=== PATIENT | female | born 1950 | race Caucasian/White ===

== ENCOUNTER → 2020-09-05 13:48 | Outpatient (BNVA) | payer MEDICARE, SELFPAY | PROVIDERS: Family Provider Family Medicine; Referring Provider Family Medicine; Visit Provider Orthopaedic Surgery | DX: M25.562 Pain in left knee (principal); M17.12 Unilateral primary osteoarthritis, left knee; Q74.1 Congenital malformation of knee | CPT/HCPCS: 73560; 73565 ==

== ENCOUNTER → 2021-03-06 10:39 | Outpatient (BNVA) | payer MEDICARE, SELFPAY | PROVIDERS: Family Provider Family Medicine; PCP Family Medicine; Referring Provider Family Medicine; Visit Provider Orthopaedic Surgery | DX: M54.9 Dorsalgia, unspecified (principal) | CPT/HCPCS: 72110 ==

== ENCOUNTER → 2021-04-11 12:23 | Outpatient (BNVA) | payer MEDICARE, SELFPAY | PROVIDERS: Family Provider Family Medicine; PCP Family Medicine; Visit Provider Orthopaedic Surgery | DX: Z01.818 Encounter for other preprocedural examination (principal); Z20.822 Contact with and (suspected) exposure to COVID-19 | CPT/HCPCS: 87635 ==

== ENCOUNTER 2021-04-13 06:00 | Outpatient (CLI) | payer MEDICARE, MEDICAID, SELFPAY ==
[2021-04-13 11:28] VITALS: BMI 32.8
--- NOTE | 2021-04-13 11:56 | ANES.PREANE2 ---
Pre-Anesthetic Assessment Pre-Anesthetic Assessment: Height/Weight: Height 1.52 m Weight 76.204 kg Preop Diagnosis: failed back surgery; lumbar stenosis Proposed Procedure: Operation Date: 04/16/21 07:00 Proposed Procedures p PLIF [id number](Not Applicable) - Roni Gordon, DO Familial anesthetic complications: None Social: Social History: No alcohol and No tobacco Exam: Pre-Anes Outpt Exam: alert, oriented x 3, clear to auscultation bilaterally and regular rate & rhythm Airway: Cervical ROM: WNL MP: 2 Dentition: Other (missing) CV/HEM: CV/HEM: HTN GI: GI: GERD Metabolic: Metabolic: Hyperlipidemia and Thyroid Musc/skel: Musc/skel: Lower Back Pain and OA/DJD Anesthetic Plan: ASA status: 2 Anesthesia: General Risk of > 500 ml blood loss (7ml/kg in children): No PFSH Anesthesia PFSH: Social History Smoking and tobacco status: never smoked Alcohol intake: current Alcohol intake frequency: holidays/special occasions only Data Anesthesia Cardiac Studies: No Data to Display
[2021-04-13 13:23] LABS: Alanine Aminotransferase 7 U/L (0-33); Albumin Level 4.1 g/dL (3.5-5.2); Alkaline Phosphatase 76 IU/L (35-105); Anion Gap 11.8 (5-19); Aspartate Amino Transferase 16 U/L (0-32); Blood Urea Nitrogen 16 mg/dL (8-23); Calcium 8.8 mg/dL (8.5-10.5); Carbon Dioxide 27 mmol/L (22-29); Chloride 101 mmol/L (98-107); Glomerular Filtration Rate 99.1 mL/min (90-130); Glucose 102 mg/dL (65-115); Osmolality Calculated 283 mOsm/kg (285-295); Potassium 3.8 mmol/L (3.5-5.1); Sodium 136 mmol/L (136-145); Total Bilirubin 0.4 mg/dL (0.15-1.2); Total Protein 7.1 g/dL (6.6-8.7)
== END 2021-04-13 06:01 | disposition home or self-care (01) ==
LOC: LAB 03-21 09:10
PROVIDERS: Absent Provider Anesthesiology; PCP Family Medicine; Visit Provider Orthopaedic Surgery
DX: Z01.89 Encounter for other specified special examinations (principal)
CPT/HCPCS: 80053

== ENCOUNTER → 2021-08-17 10:35 | Outpatient (BNVA) | payer MEDICARE, SELFPAY | PROVIDERS: PCP Family Medicine; Visit Provider Orthopaedic Surgery | DX: M54.9 Dorsalgia, unspecified (principal); Z20.822 Contact with and (suspected) exposure to COVID-19 | CPT/HCPCS: 87635 ==

== ENCOUNTER 2021-08-22 13:43 | Inpatient (IN) | payer MEDICARE, MEDICAID, SELFPAY ==
[2021-08-17 11:37] VITALS: BMI 34.2
--- NOTE | 2021-08-17 11:59 | P.ANESASSM_ITS ---
Pre-Anesthetic Assessment Pre-Anesthetic Assessment: Height/Weight: Height 1.52 m Weight 79.379 kg Preop Diagnosis: failed back surgery; lumbar stenosis Proposed Procedure: Operation Date: 08/22/21 07:00 Proposed Procedures p Posterior Lumbar Interbody Fusion [id number] [id number] [id number] 93174 [id number] 72125 M96.1(Not Applicable) - Roni Gordon, DO Familial anesthetic complications: none Social: Social History: No alcohol and No tobacco Exam: Pre-Anes Outpt Exam: alert, oriented x 3, clear to auscultation bilaterally and regular rate & rhythm Airway: Cervical ROM: WNL MP: 2 Dentition: Other (missing teeth) CV/HEM: CV/HEM: HTN GI: GI: GERD Metabolic: Metabolic: Hyperlipidemia and Thyroid Musc/skel: Musc/skel: Lower Back Pain and OA/DJD Anesthetic Plan: ASA status: 2 Anesthesia: General Risk of > 500 ml bl ood loss (7ml/kg in children): No PFSH Anesthesia PFSH: Social History Smoking and tobacco status: never smoked Alcohol intake: current Alcohol intake frequency: holidays/special occasions only Data Anesthesia Cardiac Studies: No Data to Display
[2021-08-17 12:27] LABS: Basophils % 0.2 %; Eosinophils # 0.1 10^3/uL (0.0-0.8); Eosinophils % 0.6 %; Hematocrit 45.6 % (37.0-47.0); Hemoglobin 15.2 g/dL (11.5-15.3); Lymphocytes # 3.5 10^3/uL (0.8-4.8); Lymphocytes % 43.8 %; Mean Corpuscular HGB Conc 33.3 g/dL (30.0-36.0); Mean Corpuscular Hemoglobin 29.3 pg (28.0-34.0); Mean Corpuscular Volume 87.9 fl (81-99); Mean Platelet Volume 9.4 fL (7.4-10.4); Monocytes # 0.5 10^3/uL (0.2-0.9); Monocytes % 5.8 %; Neutrophils # 3.99 10^3/uL (1.8-7.7); Neutrophils % 49.4 %; Nucleated Red Blood Cells % 0 %; Platelet Count 381 10^3/cmm (130-400); Red Blood Count 5.19 10^6/uL (4.1-5.3); Red Cell Distribution Width 14.4 % (12.1-15.1); White Blood Count 8.1 10^3/uL (4.0-10.0)
[2021-08-22] VITALS (24 sets, daily range): BP systolic 94–143; BP diastolic 64–088; PULSE 75–93; RESP 14–24; TEMP 36.5–36.9; O2SAT 92–100
--- NOTE | 2021-08-22 | SCC_ITS ---
Procedure Done: 1. T10 to pelvis fusion 2. T10 - S1 instrumentation 3. Lumbo pelvic fixation 4. Bone marrow aspirate from separate incision right iliac crest 5. Computer navigation / stereotactic of the spine 6. use of allogrtaft 7. use of autograph 8. Removal of screws fro L2 - S1 6 seconds of fluoroscopic guidance, for a cumulative dose of 73.5 mGy, was provided to Dr. Gordon by the radiology department. C-arm images of the lumbar spine were saved for the patient's permanent record. DEMARCUS
--- NOTE | 2021-08-22 | XR_ITS ---
WS: [id number] Lumbar spine, C-arm fluoroscopy, 08/22/2021 Clinical Data: plif Comparison: Lumbar spine, 03/06/2021. Findings: Dr. Gordon performed a posterior thoracolumbar fusion with bilateral pedicle screws and connecting flor s. Oblique screws are also extending from the sacrum into the pelvis. XR/XR lumbar spine 2-3V* [id number] Impression: Extensive posterior thoracolumbar fusion.
[2021-08-22] MEDS: sodium chloride 0.9% 1,000 ML 30 ML IV (09:52)
--- NOTE | 2021-08-22 10:36 | P.ANESUD_ITS ---
Pre-Anesthetic Update Pre-Anesthetic Assessment: Date of Surgery/Procedure: 08/22/21 Preop Maki gnosis: failed back surgery; lumbar stenosis Proposed Procedure: Operation Date: 08/22/21 10:25 Proposed Procedures p Posterior Lumbar Interbody Fusion [id number] 31015 10467 [id number] [id number] M96.1(Not Applicable) - Roni Gordon, DO Any changes to Pre-Anesthetic Assessment?: No Last Intake: Intake Last Liquid Date 08/21/21 Last Liquid Time 17:00 Last Solid Date 08/21/21 Last Solid Time 17:00 Vitals: Temperature 97.8 F 08/22/21 09:18 Temperature Source Temporal Artery S can 08/22/21 09:18 Pulse Rate 93 08/22/21 09:18 Pulse Rhythm 08/22/21 09:18 Pulse Strength 3+ Normal 08/22/21 09:18 Respiratory Rate 18 08/22/21 09:18 Blood Pressure 143/76 08/22/21 09:18 Blood Pressure Rachelle n 98 08/22/21 09:18 Pulse Oximetry 96 08/22/21 09:18 Oxygen Delivery Me thod 08/22/21 09:18 Exam: Pre-Anes Outpt Exam: alert, oriented x 3, clear to auscultation bilaterally and regular rate & rhythm Other Pertinent Information: Other Pertinent Information: GETA with [employer] Cardiac Studies: No Data to Display
--- NOTE | 2021-08-22 10:40 | P.HPUD_ITS ---
Surgery/Procedure H&P Update DATE OF PROCEDURE: August 22, 2021 DATE H&P PERFORMED: 08/22/21 PREOP DIAGNOSIS: failed back surgery; lumbar stenosis PLANNED PROCEDURE: Operation Date: 08/22/21 10:25 Proposed Procedures p Posterior Lumbar Interbody Fusion [id number] 11679 50862 95926 38612 43711 20394 M96.1(Not Applicable) - Roni Gordon DO
--- NOTE | 2021-08-22 10:40 | W.PM.OPSUD ---
Surgery/Procedure H&P Update DATE OF PROCEDURE: August 22, 2021 DATE H&P PERFORMED: 08/22/21 PREOP DIAGNOSIS: failed back surgery; lumbar stenosis PLANNED PROCEDURE: Operation Date: 08/22/21 10:25 Proposed Procedures p Posterior Lumbar Interbody Fusion [id number] 48391 11527 64209 21940 [id number] [id number] M96.1(Not Applicable) - Roni Gordon DO
--- NOTE | 2021-08-22 10:41 | P.HP_ITS ---
Providers/Chief Complaint Primary Care Provider: Kraig Jorge MD Chief Complaint: plif History of Present Illness Ana Villagran is a 71 year old female Chief Complaint: low back pain that has continued sine back surgery in 2019 Onset: 07/02/2019 Duration: years worse sine surgery Characteristics: ache,burning,sharp, stabbing constant and intermittent Severity: 06/12 Location: low back above and below incision. Radiating symptoms:left lateral knee numbness and swelling, complains of pain that radiates up to her neck. Aggravating factors: walking long distances increases weakness and pain, standing, Alleviating factors: laying flat Neuro deficits: denies incontinence of bowel/bladder, saddle anesthesia. Prior tx: Fusion 07/02/2019 [facility] home Review of Systems Narrative: General ROS: negative for weight changes, fever ENT ROS: negative for nasal congestion, drainage or bleeding, sore throat, dysphagia or ear pain Eyes: PERRL Hematological and Lymphatic ROS: negative for swollen glands or abnormal bleeding Endocrine ROS: negative for polyuria/polydpsia or new changes in weight Respiratory ROS: negative for cough, shortness of breath, or wheezing Cardiovascular ROS: negative for chest pain or dyspnea on exertion Gastrointestinal ROS: negative for reflux, abdominal pain, change in bowel habits, or black or bloody stools Musculoskeletal ROS: negative for back pain, neck pain, or joint pain or swelling except for current problem Neurological ROS: negative for TIA or stoke symptoms Skin: no rashes Medications/Allergies Home Medications Medication Instructions Recorded Confirmed Last Taken Type dicyclomine 10 mg capsule 10 mg PO DAILY cap 09/05/20 08/22/21 08/21/21 History estradiol 1 mg tablet 1.5 mg PO DAILY tab 09/05/20 08/22/21 08/21/21 History fluticasone furoate 50 2 inh INHALATION DAILY each 09/05/20 08/22/21 08/21/21 History mcg/actuation blister powder for inhalation levothyroxine 200 mcg capsule 150 mcg PO DAILY 09/05/20 08/22/21 08/21/21 History medroxyprogesterone 5 mg tablet 5 mg PO DAILY 09/05/20 08/22/21 08/21/21 History omeprazole 20 mg capsule,delayed 20 mg PO DAILY 09/05/20 08/22/21 08/21/21 History release Bone growth stimulator [id number] #1 ea 08/06/21 Unknown Rx amlodipine 10 mg PO DAILY 08/17/21 08/22/21 08/22/21 History atorvastatin 20 mg PO DAILY 08/17/21 08/22/21 08/21/21 History duloxetine 60 mg PO DAILY 08/17/21 08/22/21 08/21/21 History hydrocodone-acetaminophen 10 - 325 tab PO Q6H PRN 08/17/21 08/22/21 08/22/21 History Allergies Allergy/AdvReac Type Severity Reaction Status Date / Time niacin Allergy hives Verified 08/22/21 09:12 Sulfa (Sulfonamide Allergy ALGY-Rash Verified 08/22/21 09:12 Antibiotics) sulfamethoxazole Allergy hives Verified 08/22/21 09:12 [From Bactrim] trimethoprim [From Bactrim] Allergy hives Verified 08/22/21 09:12 PFSH Acute PFSH: Social History Smoking and tobacco status: never smoked Alcohol intake: current Alcohol intake frequency: holidays/special occasions only Vitals/I&O/Wt Last Vital Signs Temp 97.8 F 08/22/21 09:18 Pulse 93 08/22/21 09:18 Resp 18 08/22/21 09:18 BP 143/76 08/22/21 09:18 Pulse Ox 96 08/22/21 09:18 Physical Exam Narrative: EXAM NARRATIVE: CONSTITUTIONAL: The patient is a normal appearing [ ] in no apparent distress. GENERAL: Patient in no acute distress. CARDIAC: Regular rate and rhythm. CHEST: Normal inspiratory effort, normal respiratory rate. ABDOMEN: Soft and nontender. SKIN: Clear, warm and intact. NEURO?PSYCH: The patient is alert and oriented to person, place and time. Sensorv /SILT Motor StrengthShoulder abduction C5 5/5Wrist extension C6 5/5Elbow extension C7 5/5Hand Composite Engineer C8 5/5Finger abduction T15/5 Radial/ Ulnar/ Median n intact LowerSensory (SILT)Motor StrengthHin flexion L2/3Ant/inner thigh 5/5Hip adduction L2/3 5/5Knee extension L4 Lat thigh, 5/5Toe dorsiflexion L5 5/5Ankle dorsiflexion L5/ V79Aobyjuq flexion S1 5/5 DTRBleeps 2+Triceps 2+Brachioradialis 2+Patellar 2+Achilles 2+ MUSCULOSKELETAL: [] UPPEREXTREMITIES: The patient had full active ROM in fingers, wrist, elbow, and shoulder. The patient demonstrated ability to fully flex/extend/abduc t/adduct fingers, make ok sign, cross 2nd/3rd digits, extend 1st digit fully.. Radial pulse 2+, CR<2 seconds. LOWER EXTREMITIES: Pt has full, active ROM of toes, ankle, knee, and hip. Dorsalis pedis/posterior tibialis pulses 2+, CR<2 seconds. SPINE: Skin warm, dry, intact. Data : 08/17/21 11:56 A&P Assessment and plan (1) Failed back syndrome: Status: Acute (2) Kyphosis: T10 - Pelvis fusion Status: Acute Attestations Medical Necessity Statement*: failed conservative therapy Coding Level of Care Code Acute Explosive Ordnance Manager for [facility] Diagnoses Failed back syndrome M96.1 Kyphosis M40.209
[2021-08-22] MEDS: heparin, porcine 1,000 unit/mL INJ 10 mL 10000 UNIT IRRIGATION (12:41)
[2021-08-22] MEDS: vancomycin 1,000 MG SDV 1000 MG XX (12:43)
--- NOTE | 2021-08-22 15:01 | P.OP_ITS ---
Operative Report Date of procedure: August 22, 2021 Pre-op Diagnosis: failed back surgery; lumbar stenosis with neurogenic claudication; kyphosis Post-op diagnosis: same Procedure Done: 1. T10 to pelvis fusion 2. T10 - S1 instrumentation 3. Lumbo pelvic fixation 4. Bone marrow aspirate from separate incision right iliac crest 5. Computer navigation / stereotactic of the spine 6. use of allogrtaft 7. use of autograph 8. Removal of screws fro L2 - S1 Surgeon: Roni Gordon Food Server: Jabier Marin Food Server: The neurosurgical physician assistant, Jabier Marin, PAC was needed for his expertise under the microscope. He was important and necessary throughout the procedure to complete in a safe and timely manner. He assisted with patient positioning prepping and draping tissue retraction suctioning of the operative field protection of the dural sac and tissue closure Anesthesia: General Estimated blood loss (mL): 300 Condition: stable Disposition: PACU Procedure: 1. T10 to pelvis fusion 2. T10 - S1 instrumentation 3. Lumbo pelvic fixation 4. Bone marrow aspirate from separate incision right iliac crest 5. Computer navigation / stereotactic of the spine 6. use of allogrtaft 7. use of autograph 8. Removal of screws fro L2 - S1 Patient was brought to the operative suite and after undergoing anesthesia was placed in the prone position. All areas impingement were well-padded. Patient was prepped and draped in the normal sterile fashion. Skin incision made over the previous skin incision. Subperiosteal dissection was made from T10 out to the transverse processes down to the sacral ala. Previous hardware from L2-S1 was identified. The right sided screws were identified first. The caps were removed followed by the flor followed by removal of the screws at L2 L3-L4-L5 and S1 on the right. The ball feeler was used to ensure that the pedicles felt like they were in good repair. The screws were replaced with the Arslan screws in order to facilitate connecting to the flor. This process was repeated on the left side. There was no L3 screw however it was just the L2 L4-L5 and S1 screws. Screws were replaced into L2 L5 and S1. L3 was skipped because it appeared to be outside of the pedicle on the imaging studies. Next attention was brought to getting the bone marrow aspirate out of the right iliac crest. The [employer] cell aspiration kit was used. The sharp awl was inserted the bone marrow was aspirated the blunt was placed into the tube and driven into the iliac crest. And then the needle aspirator was inserted. The needle aspirated the bone marrow as it was brought out millimeter at a time. And 20 cc of bone marrow aspirate were taken. This was mixed with the aloe graft and allograft. Next attention was brought to the computer navigation. 2 pins were placed into the iliac crest and the fiducial for the computer navigation was attached. This information was linked to the computer. And then the C arm was brought in and spun around the patient. The information from the serum was linked into the fiducial and the computer navigation. In order to facilitate placing pedicle screws and the iliac screws. Attention was first brought to placing the iliac screws. The sacral ala was identified and then the gearshift was passed through the sacral ala through the SI joint into the iliac wing on both the right and left side. This was done using the computer navigation. The ball feeler was then used to ensure that the bone was not breached and the tap was used followed by placing an 8.5 80 mm Arslan pedicle screw. This was done on both sides. Next a new fiducial was placed at the spinous process of L2. And the computer navigation was linked in with the C arm spin again. Screws were placed at L1 T12 T11 and T10 bilaterally. This was done by using the gearshift probe linked to the computer. Followed by the ball of probe to feel the pedicles. And then the screw was placed using the computer navigation. The screws ranged from 45 to 40 mm screws. Once all the screws were placed attention was then to the next place to placing the flor. The flor was placed on the right side first placing it through the screws from T10 all the way to the iliac pelvis screw. The caps were all locked down and torqued down. This process was then repeated on the left side. Rods were torqued down on the left side. And imaging studies with the C-arm were taken sure that the screws and rods were in the appropriate position. The lamina and transverse processes were then decorticated from T10 down into the L3 range. And bone graft was packed into the lamina and gutters to connect the fusion masses. Prior to this the wound was irrigated and then after the bone graft placed vancomycin powder was placed a deep drain was placed and wound was closed in layered fashion with 0 Vicryl 2-0 Vicryl Monocryl suture and Steri-Strips. Sterile dressings were applied patient was transferred to the PACU in stable condition.
--- NOTE | 2021-08-22 15:29 | P.PCN_ITS ---
Documented by User: Eleazar Claudio CRNA 08/22/21 15:29 PACU note PACU note: VSS, Good respiratory effort, report to ENGINEERING RECRUITER Post-Anesthesia Exam: awake
--- NOTE | 2021-08-22 15:29 | PM.PACU ---
Documented by User: Eleazar Claudio CRNA 08/22/21 15:29 PACU note PACU note: VSS, Good respiratory effort, report to SALESPERSON [employer] Post-Anesthesia Exam: awake
[2021-08-22] MEDS: fentaNYL 50 mcg/mL INJ 2mL IVP (15:31)
[2021-08-22] MEDS: HYDROmorphone 1 mg/mL INJ 1 mL IVP (15:42)
[2021-08-22] MEDS: HYDROmorphone 1 mg/mL INJ 1 mL 0.5 MG IVP ×2 (15:55→16:13)
--- NOTE | 2021-08-22 16:16 | ANE.PACU2 ---
Inpatient post-anesthesia follow up: Airway intact: Yes Vital signs: Temperature 98.5 F Pulse Rate 83 Respiratory Rate 18 Blood Pressure 94/71 Pulse Oximetry 97 Oxygen Delivery Me thod Simple Mask Oxygen Flow Rate 6 Fraction of Inspir ed Oxygen Hydration adequate: Yes Nausea and vomiting: No Pain level: 5 Additional Comments: Sedated
--- NOTE | 2021-08-22 16:58 | SUR.PHASEI ---
1518 PT TO PACU PT CARE ASSUMED BY ARIANNA STEWART , PT RESTLESS AND WRITHING IN BED ART LINE TO LT WRIST IV TO RT HAND PATENT 1535 PT CARE ASSUMED BY Kavin SANDERS CRNA SEE MEDS GIVEN BY TOO AND CHARTED BY RN . PT CONTINUES TO BE WILD AND RESTLESS IN BED MOANING AND WRITHING IN BED GOOD RESP EFFORT , PT MOVES ALL EXT TO COMMAND AND STRONGLY 1548 PT CARE ASSUMED BY Otilio MARTINEZ PT AWAKE ALERT WRITHING IN PAIN , PT STATES AT 10 AND UNCHANGED SEE PREVIOUS PAIN MEDS GIVEN DR ROGERS AT BEDSIDE SEE MEDS GIVEN 1613 PT LESS RESTLESS BUT TEAR FULL AND RATES PAIN AT 10 SEE PAIN MED GIVEN TO MAKE A TOTAL OF 2 MG DILAUDID IN PACU, DR ROGERS AT BEDSIDE AND REMOVED ART LINE TO LEFT WRIST INTACT AND PRESSURE HELD WITH PRESSURE DRESSING APPLIED BY RN. PT DRESSING AND ABD BINDER D/I
--- NOTE | 2021-08-22 17:03 | SUR.PHASEI ---
164 REPOR T CALLED TO FLOOR PT UPDATED AND WILL WALK UP TO FLOOR WITH PT AND RNS X 2 PT ON BED, VSS PT ALERT AND TALKATIVE WITH STAFF AND . 1650 PT IN ROOM , PT MOVED UP IN BED WITH THE ASSIST OF 2 RNS, HANDOFF AT BEDSIDE TO SELIN STEWART.
[2021-08-22] MEDS: HYDROcodone-acetaminophen 5-325 mg Tablet PO (17:34)
[2021-08-22] MEDS: docusate sodium 100 mg Capsule PO (17:34)
[2021-08-22] MEDS: morphine 4 mg/mL SDV 1 mL 2 MG IVP (19:50)
[2021-08-22] MEDS: lactated ringers 1,000 ML 90 ML IV (20:28)
[2021-08-23] VITALS: BP 123/72; PULSE 95; RESP 17; TEMP 36.6; O2SAT 98
[2021-08-23] MEDS: HYDROcodone-acetaminophen 10-325 mg Tablet PO (00:07)
[2021-08-23] MEDS: ketorolac 30 mg/mL INJ IVP (02:32)
[2021-08-23] MEDS: ondansetron 2 mg/ML SDV 2 mL 4 MG IVP ×2 (02:32→06:32)
[2021-08-23 04:00] VITALS: BP 137/82; PULSE 90; RESP 16; TEMP 36.7; O2SAT 97
[2021-08-23] MEDS: enoxaparin 40 mg/0.4 mL Syringe SUBCUT (06:15)
--- NOTE | 2021-08-23 06:27 | P.PN_ITS ---
Subjective Subjective: Interval history: POD 1 Complains of some mild back discomfort. Legs feel better. Denies any chest pain, shortness of breath. She does have some nausea. Mild headache. Vitals/I&O/Wt Last Vital Signs Temp 98.0 F 08/23/21 04:00 Pulse 90 08/23/21 04:00 Resp 16 08/23/21 04:00 BP 137/82 08/23/21 04:00 Pulse Ox 97 08/23/21 04:00 08/22/21 08/22/21 08/23/21 14:59 22:59 06:59 Intake Total 60 / 60 760 / 820 60 / 880 Output Total 700 / 700 900 / 1600 Balance 60 / 60 60 / 120 -840 / -720 Physical Exam Narrative: EXAM NARRATIVE: She is alert oriented x3 she has good general appearance normal mood normal affect. Incision is clean and dry. She had 150 mL out of her Hemovac over the last 12 hours. She wiggles all digits with 5/5 strength. Good sensation light touch in all lower extremities. Dorsalis pedis and posterior pulses are palpable. SCDs present on both lower extremities. Data : 08/17/21 11:56 A&P Assessment and plan (1) Hx of spinal fusion: Encouraged her to begin mobilizing today with physical therapy. We will discontinue her Tena catheter. We will discontinue her Hemovac drain later today. Discussed with the nurse to work on laxative of choice to help with a bowel movement. Should continue with incentive spirometry for pulmonary toilet. Hopes of discharge home tomorrow. Status: Acute Attestations Medical Necessity Statement*: Revision Thoracolumbar fusion with N/V this AM Coding Level of Care Code Acute Structural Drafter for [facility] Diagnoses Hx of spinal fusion Z98.1
[2021-08-23 06:32] VITALS: RESP 18
[2021-08-23] MEDS: morphine 4 mg/mL SDV 1 mL 2 MG IVP ×2 (06:32→10:43)
[2021-08-23 08:00] VITALS: BP 113/66; PULSE 88; RESP 18; TEMP 36.9; O2SAT 97
[2021-08-23] MEDS: docusate sodium 100 mg Capsule PO (08:49)
[2021-08-23] MEDS: pantoprazole DR 40 mg Tablet PO (08:49)
[2021-08-23] MEDS: dicyclomine 10 mg Capsule PO (08:49)
[2021-08-23] MEDS: duloxetine 60 mg Capsule PO (08:49)
[2021-08-23] MEDS: levothyroxine 150 mcg Tablet PO (08:49)
[2021-08-23] MEDS: atorvastatin 40 mg Tablet 20 MG PO (08:49)
[2021-08-23] MEDS: estradiol 1 mg Tablet 1.5 MG PO (08:53)
[2021-08-23] MEDS: lactated ringers 1,000 ML 90 ML IV (08:54)
[2021-08-23] MEDS: amlodipine 10 mg Tablet PO (08:55)
--- NOTE | 2021-08-23 09:36 | PC.NURSE ---
Hemovac drain removed per orders with no apparent complications. Will continue to monitor.
[2021-08-23] MEDS: medroxyprogesterone 2.5 mg Tablet 5 MG PO (10:13)
[2021-08-23 10:43] VITALS: RESP 14
[2021-08-23 11:46] VITALS: BP 124/74; PULSE 93; RESP 18; TEMP 37.2; O2SAT 97
--- NOTE | 2021-08-28 07:53 | P.DS_ITS ---
Discharge Providers Date of Admission: 08/22/21 13:43 Date of Discharge: August 23, 2021 Attending Provider at Admission: Roni Gordon DO Attending Provider at Discharge: Roni Gordon DO Primary Care Provider: Kraig Jorge MD Diagnoses at Discharge Discharge Diagnosis (1) Hx of spinal fusion: Status: Acute Reason for Visit Reason for Visit: plif Hospital Course Hospital Course Patient was admitted on 08/22/2021. She had a T10 to pelvis revision spinal fusion. Her hospital course was uneventful she went home on 08/23/2021. Discharge Data Data Completed and Pending: Completed Studies During Hospitalization Category Date Time Status XR lumbar spine 2 -3V* [id number] Routine Exams 08/22/21 Completed Vitals: Last Vital Signs Temp 98.9 F 08/23/21 11:46 Pulse 93 08/23/21 11:46 Resp 18 08/23/21 11:46 BP 124/74 08/23/21 11:46 Pulse Ox 97 08/23/21 11:46 Discharge Plan Discharge Patient Disposition: Home Condition: Stable Prescriptions: New hydrocodone-acetaminophen 5-325 mg tablet 1 - 2 tab PO .Q4-6H Qty: 40 RF: 0 Continued dicyclomine 10 mg capsule 10 mg PO DAILY RF: 0 estradiol 1 mg tablet 1.5 mg PO DAILY RF: 0 fluticasone furoate 50 mcg/actuation blister with device 2 inh INHALATION DAILY RF: 0 levothyroxine 200 mcg capsule 150 mcg PO DAILY RF: 0 medroxyprogesterone 5 mg tablet 5 mg PO DAILY RF: 0 omeprazole 20 mg capsule,delayed release(DR/EC) 20 mg PO DAILY RF: 0 (DME) Bone growth stimulator E0748 See Rx Instructions .Route .MEDSUPPLY Qty: 1 RF: 0 atorvastatin 20 mg Tablet 20 mg PO DAILY RF: 0 hydrocodone-acetaminophen 10-325 mg Tablet 10 - 325 tab PO Q6H PRN (Reason: Pain) RF: 0 amlodipine 10 mg Tablet 10 mg PO DAILY RF: 0 duloxetine 60 mg Capsule,Delayed Release(Dr/Ec) 60 mg PO DAILY RF: 0 Discharge Orders: Discharge Order (Routine); Ordered 08/23/21 Ordered By: Roni Gordon Referrals: Roni Gordno DO [Physician] - 08/30/21 9:15 am Discharge Diet: Advance as tolerated Discharge Activity: Limit activity as instructed Patient Instructions: Hydrocodone/Acetaminophen (By mouth), Lumbar Spinal Fusion (GEN), Opioid Safety Activity Restrictions/Additional Instructions: Thank you for [facility] for your care! The following is a list of instructions, from your provider, to follow upon your discharge to ensure you have the optimal recovery from your recent injury orsurgery. Follow-up care is a duran part of your treatment and safety. Be sure to make and go to all appointments, and call your doctor if you are having problems. If you do not already have a follow-up appointment made, call Dr. Gordon office in the next 1-3 days to make follow up appointment for 1 weeks at [phone]. It is also a good idea to know your test results and keep a list of the medicines you take. Medications will be prescribed for you at your provider's discretion. These medications are to be used as instructed; if they are taken more often that prescribed they will not be refilled early and in most cases will not be refilled at all. > When a refill is needed,you should contact pantera day 2-3 business days before your prescription runs out. Medications will NOT be refilled by computer information systems instructor providers after hours! > Many pain medications contain Tylenol (Acetaminophen). Do not consume more than 4,000 mg of Tylenol per day in total with any combination ofmedicati ons. > Pain medications can cause constipation. Please use an over the counter stool softener as directed, while taking pain medications. Consulty our local pharmacist with questions or recommendations on stool softeners. If constipation persists, contact our office or your primary care provider. > While under our care,you are not to receive pain medications or other controlled substances from any other provider unless our office is notified and approves. Any attempts to do so will result in refusal to prescribe any further pain medications and possible dismissal from our practice. ? Keep dressing on until seen in clinic ? Showering is permitted, however we ask that you do not take a bath, sit in a whirlpool / Jacuzzi, or go swimming for 1 month. For only the first 2 days after surgery, lt wilt be necessary for you to cover your wound/dressing with plastic and tape to keep it dry. ? Walking is essential for the healing process after surgery. We would like you to slowly advance your walking. This should be done on relatively flat clear ground (inside or out) or can be done on a treadmill. Remember this goal does not have to happen all at once, slowly increase your distance and duration. This can be broken into more more than one walk per day as tolerated. Patients who walk as directed after surgery rarely require Physical Therapy. In the unlikely event this issue arises your provider will direct hospital staff to make the appropriate arrangements. ? No lifting over 5 pounds {a gallon of milk) or bending/twisting until further notice. Each of these activities places an unnecessary amount of stress onto the body and can impede the delicate healing process. > Instead of bending at the waist, keep your back straight and bend at the knees. > Instead of twisting your torso, keep your back straight and turn your entire body with your feet. ? You may sleep in any position which makes you comfortable. Many patients find comfort sleeping in a reclining chair. It is not abnormal to have difficulty sleeping for the first several weeks following your surgery. We recommend trying Benadry! or Tylenol PM as directed to help with your sleeping difficulties. Both medications are over the counter and available withoutprescription. ? NO SMOKING!!! Smoking dramatically increases the probability of developing postoperative wound infections. ? Common complaints after lumbar and/or thoracic spine surgery include, but are not limited to: numbness and/or tingling in the legs, pain around the incision and surrounding tissues, muscle spasms, or stiffness of the middle to low back. Contact our office if these symptoms persist or if an acute change occurs. ? No driving for the first 3-5days, and not while taking narcotics [] until seen at your follow-up appointment and cleared. There are no restrictions for riding on short trips, however if you take a longer trip, arrangements should be made to make regular stops to get out of the vehicle and stretch . ? Swelling is an unfortunate event that will take place with any surgery and is the primary source of your postoperative discomfort. While walking and regular approved activities helps control inflammation, there are additional steps you can take to minimizeswelling. > Place ice over the surgical site and surrounding tissue for twenty minutes, followed by applying a low/medium heat (heating pad) for an additional twenty minutes every 1-2 hours as needed for painrelief. > You may use of over the counter anti-inflammatory medications (Ibuprofen, Motrin, Aleve, Advil, etc) as directed on the package label. These types of medicines wm significantly reduce the amount of discomfort you experience after surgery from swelling. It should be noted that if you have and allergy to any of these medications, or a history of ulcers or kidney disease you should consult you primary care provider prior to starting these medications. Discharge Attestations Time Spent in Discharge Care*: less than 30 min Quality Metrics Clinical Quality Measures During this hospital stay, did patient experience: None Coding Level of Care Code Acute [facility] note Diagnoses Hx of spinal fusion Z98.1
== END 2021-08-23 12:09 | disposition home or self-care (01) | DRG 458 ==
LOC: MEDSURG 13:47
PROVIDERS: Anesthesiology; Admitting Provider Orthopaedic Surgery; PCP Family Medicine; Visit Provider Orthopaedic Surgery
PROC: 0RG7071 Fusion of 2 to 7 Thoracic Vertebral Joints with Autologous Tissue Substitute, Posterior Approach, Posterior Column, Open Approach (ICD-10-PCS; CPT 22612; principal; 2021-08-22 10:25)
DX: M96.1 Postlaminectomy syndrome, not elsewhere classified (principal); M48.062 Spinal stenosis, lumbar region with neurogenic claudication; Z98.1 Arthrodesis status; Z79.891 Long term (current) use of opiate analgesic
CPT/HCPCS: 36415; 72100; 76000; 85025; 86850; 86900; 96372; 97161; 97530; C1713; G0378; J0330; J0690; J1100; J1170; J1644; J1650; J1885; J2270; J2370; J2405; J2704; J2710; J3010; J3370; J3490; J7030; J8499

== ENCOUNTER → 2021-10-04 11:00 | Outpatient (BNVA) | payer MEDICARE, SELFPAY | PROVIDERS: PCP Family Medicine; Visit Provider Orthopaedic Surgery | DX: Z48.89 Encounter for other specified surgical aftercare (principal); Z47.89 Encounter for other orthopedic aftercare; Z98.890 Other specified postprocedural states; Z98.1 Arthrodesis status | CPT/HCPCS: 72100 ==

== ENCOUNTER → 2021-11-15 11:17 | Outpatient (BNVA) | payer MEDICARE, MEDICAID, SELFPAY | PROVIDERS: PCP Family Medicine; Visit Provider Orthopaedic Surgery | DX: Z48.89 Encounter for other specified surgical aftercare (principal) | CPT/HCPCS: 72100 ==

== ENCOUNTER 2022-06-04 12:17 | Outpatient (CLI) | payer MEDICARE, MEDICAID, SELFPAY ==
--- NOTE | 2022-06-04 12:43 | XRR_ITS ---
PROCEDURE INFORMATION: Exam: XR Left Foot Exam date and time: 06/04/2022 1:07 PM Age: 72 years old Clinical indication: Left; Patient HX: Lt foot pain top of foot, knot for 1 yr; Additional info: Left foot pain TECHNIQUE: Imaging protocol: Radiologic exam of the Left foot. Views: 1 or 2 views. COMPARISON: CR XR knees AP WB w LT lmt ORTH 09/05/2020 1:54 PM FINDINGS: Bones/joints: No acute fracture or dislocation. Joint spaces are well maintained. Incidental note is made of a small plantar calcaneal enthesophyte. Soft tissues: Normal. XR/XR foot LT 2V [id number] IMPRESSION: No acute
== END 2022-06-04 12:18 | disposition home or self-care (01) ==
LOC: RAD 12:21
PROVIDERS: PCP Family Medicine; Visit Provider Family Medicine
DX: M79.672 Pain in left foot (principal); E03.9 Hypothyroidism, unspecified; I10 Essential (primary) hypertension; M54.9 Dorsalgia, unspecified; G89.29 Other chronic pain
CPT/HCPCS: 73620; 80053; 80061; 84443

== ENCOUNTER → 2022-09-12 11:28 | Outpatient (BNVA) | payer MEDICARE, MEDICAID, SELFPAY | PROVIDERS: PCP Family Medicine; Visit Provider Orthopaedic Surgery | DX: Z98.1 Arthrodesis status (principal); Z47.89 Encounter for other orthopedic aftercare | CPT/HCPCS: 72110; 99213 ==

== ENCOUNTER → 2023-03-18 11:04 | Outpatient (BNVA) | payer MEDICARE, MEDICAID, SELFPAY | PROVIDERS: PCP Family Medicine; Visit Provider Family Medicine | DX: E03.9 Hypothyroidism, unspecified (principal); M54.9 Dorsalgia, unspecified; G89.29 Other chronic pain; I10 Essential (primary) hypertension | CPT/HCPCS: 80053; 80061; 84443; 85025 ==

== ENCOUNTER → 2024-02-11 11:10 | Outpatient (BNVA) | payer MEDICARE, MEDICAID, SELFPAY | PROVIDERS: PCP Family Medicine; Visit Provider Family Medicine | DX: R51.9 Headache, unspecified (principal); M79.10 Myalgia, unspecified site; M25.50 Pain in unspecified joint; I10 Essential (primary) hypertension; E03.9 Hypothyroidism, unspecified; M54.9 Dorsalgia, unspecified; G89.29 Other chronic pain | CPT/HCPCS: 80053; 80061; 82306; 84443; 84550; 85025; 85651; 86003; 86008; 86140; 86160; 86162; 86235; 86255; 86376; 86618; 86666; 86757 ==

== ENCOUNTER 2025-02-09 12:38 | Outpatient (CLI) | payer MEDICARE, SELFPAY ==
--- NOTE | 2025-02-09 12:44 | XR_ITS ---
WS: [id number] Exam: XR lumbar spine 2-3V* [id number] Date/Time of Exam: 02/09/2025 12:46 PM Reason For Exam: back pain Comparison 09/12/2022. Thoracolumbar posterior fusion noted extending from T10-S1. The LEFT posterior flor has fractured at the level of L3. The fusion remains in good alignment. Mild degenerative anterolisthesis of L5 on S1 is unchanged. Screws bridge the bilateral SI joints. Laminectomy from L3-S1. Disc degeneration at all levels as well as facet arthropathy. Slight dextroscoliosis. XR/XR lumbar spine 2-3V* [id number] IMPRESSION: 1. Stable appearing thoracolumbar posterior fusion. 2. The LEFT posterior flor has fractured at the level of L3. No displacement not ed.
== END 2025-02-09 12:39 | disposition home or self-care (01) ==
PROVIDERS: PCP Family Medicine; Visit Provider Family Medicine
DX: M47.896 Other spondylosis, lumbar region (principal); G89.29 Other chronic pain; Z98.1 Arthrodesis status; M96.89 Other intraoperative and postprocedural complications and disorders of the musculoskeletal system; M43.17 Spondylolisthesis, lumbosacral region; M51.369 Other intervertebral disc degeneration, lumbar region without mention of lumbar back pain or lower extremity pain
CPT/HCPCS: 72100; 80053; 80061; 84443; 85025

== ENCOUNTER → 2025-03-01 10:20 | Outpatient (BNVA) | payer MEDICARE, SELFPAY | PROVIDERS: PCP Family Medicine; Visit Provider Orthopaedic Surgery | DX: M54.9 Dorsalgia, unspecified (principal); G89.29 Other chronic pain | CPT/HCPCS: 72100; 99213 ==

== ENCOUNTER 2025-03-17 09:29 | Outpatient (CLI) | payer OTHER, MEDICAID, SELFPAY ==
--- NOTE | 2025-03-17 09:00 | CTR_ITS ---
PROCEDURE INFORMATION: Exam: CT Lumbar Spine Without Contrast Exam date and time: 03/17/2025 9:52 AM Age: 74 years old Clinical indication: Low back pain; Prior surgery; Surgery date: 6+ months; Surgery type: Hyst, thoraic/lumbar; Back pain, patient says broken hardware TECHNIQUE: Imaging protocol: Computed tomography of the lumbar spine without contrast. Radiation optimization: All CT scans at this facility use at least one of these dose optimization techniques: automated exposure control; mA and/or kV adjustment per patient size (includes targeted exams where dose is matched to clinical indication); or iterative reconstruction. COMPARISON: Thoracic spine CT 03/17/2025; lumbar spine radiographs 03/01/2025 and 02/09/2025 RADIATION DOSE METRICS: Total DLP (mGy-cm): 564.71 FINDINGS: Bones/joints: Spinal hardware extends from T10 to the lumbosacral level. In the lumbar spine there are bilateral pedicle screws at L1, L2, and L5 with right-sided pedicle screws at L3 and L4. Bilateral S1 screws and bilateral sacroiliac joint screws are seen. There is a fracture of the left spinal flor at the L3 level, only minimally displaced. Status post laminectomies from L2-L5. Visualization of the spinal canal is obscured by streak artifact from hardware. Where the spinal canal is visualized, no significant stenosis is seen. Vertebral body heights are preserved although there is generalized osteopenia. Minimal anterolisthesis of L5 on S1. Moderate degenerative disc disease at L2-L3 with irregular sclerosis of the superior L3 body. Soft tissues: Unremarkable. CT/CT lumbar spine wo con* [id number] IMPRESSION: 1. Spinal fixation hardware from T10-S1 as described. Fracture of the left spinal flor at the L3 level. This is also seen on prior radiographs. 2. Grade 1 anterolisthesis of L5 on S1.
--- NOTE | 2025-03-17 10:00 | CTR_ITS ---
PROCEDURE INFORMATION: Exam: CT Thoracic Spine Without Contrast Exam date and time: 03/17/2025 9:48 AM Age: 74 years old Clinical indication: Pain in thoracic spine; Prior surgery; Surgery date: 6+ months; Surgery type: Hyst, thoraic/lumbar; Back pain, patient says broken hardware TECHNIQUE: Imaging protocol: Computed tomography of the thoracic spine without contrast. Radiation optimization: All CT scans at this facility use at least one of these dose optimization techniques: automated exposure control; mA and/or kV adjustment per patient size (includes targeted exams where dose is matched to clinical indication); or iterative reconstruction. COMPARISON: MR lumbar spine wo con* [id number] 02/06/2021 10:39 AM RADIATION DOSE METRICS: Total DLP (mGy-cm): 501.31 FINDINGS: Bones/joints: Posterior spinal fusion with pedicle screws at T10, T11, T12, L1, and L2 with extent of spinal hardware more inferiorly not visualized on this study. Hardware appears to be intact at least by CT. Radiographs may be more sensitive to subtle hardware failure or fractures. Visualization of the spinal canal at the level of the hardware is very limited due to streak artifact. At the visualized levels, no significant spinal stenosis. Vertebral body heights are preserved. Spondylosis deformans in the mid to lower thoracic spine. Multilevel degenerative disc disease in the mid to lower thoracic spine with vacuum disc phenomena. Minimal anterolisthesis of L1 with respect to T12. Soft tissues: Unremarkable. Other findings: Mild emphysema. CT/CT thoracic spin wo con* [id number] IMPRESSION: Posterior spinal fusion involving the lower thoracic and lumbar spine as described with visualization down to the L2 level. No appreciable hardware failure in the thoracic spine.
== END 2025-03-17 09:30 | disposition home or self-care (01) ==
PROVIDERS: PCP Family Medicine; Visit Provider Orthopaedic Surgery
DX: M47.894 Other spondylosis, thoracic region (principal); G89.29 Other chronic pain; Z98.1 Arthrodesis status; M51.34 Other intervertebral disc degeneration, thoracic region; J43.9 Emphysema, unspecified; M96.89 Other intraoperative and postprocedural complications and disorders of the musculoskeletal system; M85.88 Other specified disorders of bone density and structure, other site; M51.369 Other intervertebral disc degeneration, lumbar region without mention of lumbar back pain or lower extremity pain; R93.7 Abnormal findings on diagnostic imaging of other parts of musculoskeletal system
CPT/HCPCS: 72128; 72131

== ENCOUNTER 2025-03-22 11:34 | Outpatient (CLI) | payer OTHER, SELFPAY ==
[2025-03-22 12:30] LABS: Basophils % 0.1 %; Eosinophils # 0.1 10^3/uL (0.0-0.8); Eosinophils % 0.7 %; Hematocrit 44.8 % (36-47); Lymphocytes # 3.3 10^3/uL (0.8-4.8); Lymphocytes % 41.6 %; Mean Corpuscular Hemoglobin 29.3 pg (27-33); Mean Corpuscular Volume 88.7 fl (85-98); Mean Platelet Volume 9.1 fL (7.4-10.4); Monocytes # 0.5 10^3/uL (0.2-0.9); Monocytes % 5.7 %; Neutrophils # 4.13 10^3/uL (1.8-7.7); Neutrophils % 51.5 %; Nucleated Red Blood Cells % 0 %; Platelet Count 356 10^3/cmm (157-399); Red Blood Count 5.05 10^6/uL (3.85-5.65); Red Cell Distribution Width 14.6 % (12.1-15.1); White Blood Count 8.03 10^3/uL (3.29-11.43)
[2025-03-22 12:40] LABS: Bilirubin Urine 1+ (Negative); Blood Urine Trace (Negative); Glucose Urine UA Negative (Normal); Ketones Urine Trace (Negative); Leukocyte Esterase Urine Negative (Negative); Nitrate Urine Negative (Negative); Protein Urine Trace (Negative); Specific Gravity, Urine 1.025 (1.005-1.030); Urine Appearance Cloudy (CLEAR); Urine Color Dark Yellow (Yellow); pH Urine 5.5 (5-7)
[2025-03-22 12:42] LABS: Add Urine Microscopic? YES; Bacteria Urine 2+ /hpf; Hyaline Casts Urine 2.46 /lpf; Squamous Epithelial Cell Urine 21-50 /hpf (0-5); WBC Urine 0-5 /hpf (0-5)
[2025-03-22 13:05] LABS: Alanine Aminotransferase 11 U/L (0-33); Albumin Level 4.1 g/dL (3.5-5.2); Alkaline Phosphatase 89 U/L (35-105); Anion Gap 15.7 (5-19); Aspartate Amino Transferase 18 U/L (0-32); Blood Urea Nitrogen 15 mg/dL (8-23); Calcium 9.2 mg/dL (8.5-10.5); Carbon Dioxide 23 mmol/L (22-29); Chloride 104 mmol/L (98-107); Globulin 3.4 g/dL (1.3-4.6); Glucose 97 mg/dL (65-115); Osmolality Calculated 289 mOsm/kg (285-295); Potassium 3.7 mmol/L (3.5-5.1); Sodium 139 mmol/L (136-145); Total Bilirubin 0.5 mg/dL (0.15-1.2); Total Protein 7.5 g/dL (6.6-8.7)
[2025-03-22 13:14] LABS: Add Urine Culture? No
== END 2025-03-22 11:35 | disposition home or self-care (01) ==
PROVIDERS: PCP Family Medicine; Visit Provider Orthopaedic Surgery
DX: Z01.818 Encounter for other preprocedural examination (principal)
CPT/HCPCS: 80053; 81001; 85025; 99214

== ENCOUNTER → 2025-04-01 08:54 | Outpatient (BNVA) | payer OTHER, MEDICAID, SELFPAY | PROVIDERS: PCP Family Medicine; Visit Provider Family Medicine | DX: Z01.818 Encounter for other preprocedural examination (principal) | CPT/HCPCS: 93005 ==

== ENCOUNTER 2025-04-04 11:02 | Inpatient (IN) | payer OTHER, MEDICAID, SELFPAY ==
[2025-04-04] VITALS (11 sets, daily range): BP systolic 91–141; BP diastolic 44–91; PULSE 69–86; RESP 16–18; TEMP 36.1–36.3; O2SAT 93–98
[2025-04-04] MEDS: sodium chloride 0.9% 1,000 ML 30 ML IV (08:12)
--- NOTE | 2025-04-04 08:57 | ANES.PREANE2 ---
Pre-Anesthetic Assessment Height/Weight: Height 5 ft Weight 171 lb Temp Pulse Resp BP Pulse Ox O2 Del Method 97.4 F L 72 16 141/90 96 Room Air 04/04/25 08:04 04/04/25 08:04 04/04/25 08:04 04/04/25 08:04 04/04/25 08:04 04/04/25 08:04 Preop Diagnosis: Nonunion lumbar spine Operation Date: 04/04/25 09:40 Proposed Procedures p Replacement / Revision Of Spine Hardware(Not Applicable) - Roni Gordon, DO Was Beta Cedric taken within 24 hours: N/A Was Clonidine taken within 24 hours: N/A Last intake: Intake Last Liquid Date 04/03/25 Last Liquid Time 18:00 Last Solid Date 04/03/25 Last Solid Time 18:00 Social No alcohol and No tobacco Exam alert, oriented x 3 and regular rate & rhythm Airway Submandibular: within normal limits Mallampati: Class III Comments: Comments: Poor dentition, multiple missing teeth. Denies any loose Anesthetic Plan ASA status: 3 Anesthesia: General Other: No prior issues with anesthesia NPO since yesterday evening History of hypertension, and on amlodipine Hypothyroidism on Synthroid GERD, controlled with omeprazole Labs 03/22/2025 reviewed acceptable for procedure EKG sinus rhythm Plan for GETA Medications/Allergies Home Medications ?Medication ?Instructions ?Recorded ?Confirmed ?Last Taken ?Type Bone growth stimulator E0748 #1 ea 08/06/21 04/04/25 04/03/25 Rx dicyclomine 10 mg capsule 10 mg PO TID PRN abd pain #90 caps 02/18/23 04/01/25 Unknown Rx omeprazole 20 mg capsule,delayed 20 mg PO DAILY #30 caps 12/10/24 04/04/25 04/03/25 Rx release hydrocodone 10 mg-acetaminophen 10 - 325 tab PO Q6H PRN Pain 30 03/10/25 04/04/25 04/04/25 Rx 325 mg tablet days #90 tabs amlodipine 10 mg tablet 10 mg PO DAILY 04/01/25 04/04/25 04/04/25 History atorvastatin 20 mg tablet 20 mg PO DAILY 04/01/25 04/04/25 04/03/25 History cholecalciferol (vitamin D3) 250 250 mcg PO DAILY 04/01/25 04/04/25 04/03/25 History mcg (10,000 unit) capsule cyclobenzaprine 10 mg tablet 10 mg PO QPM muscle spasm 04/01/25 04/04/25 04/03/25 History duloxetine 60 mg capsule,delayed 60 mg PO DAILY 04/01/25 04/04/25 04/03/25 History release estradiol 1 mg tablet 1.5 mg PO DAILY 04/01/25 04/04/25 04/03/25 History fluticasone propionate 50 50 mcg intranasal DAILY 04/01/25 04/04/25 04/03/25 History mcg/actuation nasal spray,suspension levothyroxine 150 mcg tablet 150 mcg PO DAILY 04/01/25 04/04/25 04/04/25 History medroxyprogesterone 5 mg tablet 5 mg PO DAILY 04/01/25 04/04/25 04/03/25 History Allergies Allergy/AdvReac Type Severity Reaction Status Date / Time hydrochlorothiazide Allergy Intermediate rash Verified 04/01/25 09:15 niacin Allergy hives Verified 04/01/25 09:15 Sulfa (Sulfonamide Allergy ALGY-Rash Verified 04/01/25 09:15 Antibiotics) sulfamethoxazole (From Allergy hives Verified 04/01/25 09:15 Bactrim) trimethoprim (From Bactrim) Allergy hives Verified 04/01/25 09:15 Current Medications Generic Name Dose Route Start Last Admin Trade Name Freq PRN Reason Stop Dose Admin Sodium Chloride 1,000 mls @ 30 mls/hr 04/04/25 08:00 04/04/25 08:12 Sodium Chloride 0.9% IV 04/05/25 07:59 30 mls/hr .Q24H BOLIVAR Administration PFSH Anesthesia Medical History Chronic back pain Hypertension Hypothyroid Social History Smoking and tobacco/nicotine status: never used tobacco/nicotine Alcohol intake: current Alcohol intake frequency: holidays/special occasions only Substance/Drug Use: never
--- NOTE | 2025-04-04 09:00 | W.PM.OPSUD ---
Surgery/Procedure H&P Update DATE OF PROCEDURE: April 04, 2025 DATE H&P PERFORMED: 03/22/25 H&P UPDATE INFORMATION: I have reviewed H&P completed within last 30 days, I have examined patient prior to procedure and No changes to prior documentation PREOP DIAGNOSIS: Nonunion lumbar spine PLANNED PROCEDURE: Operation Date: 04/04/25 09:40 Proposed Procedures p Replacement / Revision Of Spine Hardware(Not Applicable) - Roni Gordon DO
[2025-04-04] MEDS: ceFAZolin 2,000 mg SDV 2000 MG IVP (09:39)
[2025-04-04] MEDS: lidocaine-epi 1% 20 mL INJ 10 ML INJECTION (10:14)
[2025-04-04] MEDS: VANCOMYCIN ADD-Vantage 1,000 MG VIAL 1000 MG XX (10:14)
--- NOTE | 2025-04-04 10:36 | PM.OP ---
Operative Report Date of procedure: April 04, 2025 Pre-op diagnosis: Nonunion lumbar spine Post-op diagnosis: same Procedure done: 1. L3-4 posterior spine instrumentation 2. L3-4 posterior spine fusion 3. Use of allograft Surgeon: Roni Gordon DO Estimated blood loss (mL): 25 Procedure: 1. L3-4 posterior spine instrumentation 2. L3-4 posterior spine fusion 3. Use of allograft Patient brought to the op suite after an Gonasi was placed in the prone position. All areas impingement well-padded. Patient's prepped draped in sterile fashion. Skin incision was made over the area on the left side with the flor was broken. Wiltsie type approach was used to split through the muscle layer. The broken flor was identified. The scar and fibrous tissue around the flor was taken out with a curved curette and rongeur. To flor connectors were placed on each side of the broken flor. 1 was proximal 1 was distal. And then this was locked to the flor at both sides. Then a new flor was placed connecting the L3 to the L4 levels. Horas broken. Screw caps were torqued down. X-rays taken confirmed the flor in good position. The transverse processes were decorticated and ostial amp allograft was placed. Wounds are closed in layered fashion with with 0 Vicryl 2-0 Vicryl Monocryl suture. Vancomycin powder was used in the wound. Sterile dressings were applied and patient was transferred to the PACU in stable condition.
[2025-04-04] MEDS: HYDROcodone-acetaminophen 10-325 mg Tablet 2 TAB PO (11:52)
--- NOTE | 2025-04-04 12:27 | XR_ITS ---
WS: [id number] XR lumbar spine 1V [id number] REASON FOR EXAM: hardware revision, or pic FINDINGS: Posterior decompression with posterior pedicle screws and interconnecting rods from T12-S2. Repair of fractured left interconnecting flor at the L4 level. XR/XR lumbar spine 1V [id number] IMPRESSION: Revision of posterior thoracolumbar fusion as above.
--- NOTE | 2025-04-04 12:35 | ANE.PACU2 ---
Inpatient post-anesthesia follow up: Airway intact: Yes Vital signs: Temperature 97.0 F Pulse Rate 72 Respiratory Rate 16 Blood Pressure 113/63 Pulse Oximetry 98 Oxygen Delivery Me thod Room Air Oxygen Flow Rate 6 Fraction of Inspir ed Oxygen Hydration adequate: Yes Nausea and vomiting: No Pain level: 1 Mental status: Baseline
--- NOTE | 2025-04-19 16:55 | P.DS_ITS ---
Discharge Providers Date of Admission: 04/04/25 11:02 Date of Discharge: April 04, 2025 Attending Provider at Admission: Roni Gordon DO Attending Provider at Discharge: Roni Gordon DO Primary Care Provider: Kraig Jorge MD Reason for Visit Reason for Visit: T84.216A Discharge Data Studies Completed and Pending Completed Studies During Hospitalization Category Date Time Status XR lumbar spine 1V [id number] Routine Exams 04/04/25 12:27 Completed Radiology Impressions Lumbar Spine X-Ray 04/04/25 12:27 IMPRESSION: Revision of posterior thoracolumbar fusion as above. Vitals Last Vital Signs Temp 97.0 F L 04/04/25 11:17 Pulse 72 04/04/25 11:47 Resp 16 04/04/25 11:47 BP 113/63 04/04/25 11:47 Pulse Ox 98 04/04/25 11:47 O2 Del Method Room Air 04/04/25 11:47 O2 Flow Rate 6 04/04/25 10:53 Discharge Plan Discharge Patient Disposition: Home Condition: Stable Prescriptions: Continued (DME) Bone growth stimulator [id number] See Rx Instructions .Route .MEDSUPPLY Qty: 1 0RF Rx Instructions: As directed dicyclomine 10 mg capsule 10 mg PO TID PRN (Reason: abd pain) Qty: 90 11RF omeprazole 20 mg capsule,delayed release(DR/EC) 20 mg PO DAILY Qty: 30 11RF cyclobenzaprine 10 mg tablet 10 mg PO QPM atorvastatin 20 mg tablet 20 mg PO DAILY Rx Instructions: TAKE 1 TABLET BY MOUTH ONCE A DAY FOR HIGH CHOLESTEROL medroxyprogesterone 5 mg tablet 5 mg PO DAILY Rx Instructions: TAKE 1 TABLET BY MOUTH ONCE DAILY estradiol 1 mg tablet 1.5 mg PO DAILY Rx Instructions: TAKE 1 AND 1/2 TABLETS BY MOUTH ONCE DAILY amlodipine 10 mg tablet 10 mg PO DAILY Rx Instructions: TAKE ONE TABLET BY MOUTH ONCE DAILY levothyroxine 150 mcg tablet 150 mcg PO DAILY Rx Instructions: TAKE 1 TABLET BY MOUTH ONCE DAILY fluticasone propionate 50 mcg/actuation spray,suspension 50 mcg intranasal DAILY Rx Instructions: USE 2 SPRAYS IN BOTH NOSTRILS DAILY duloxetine 60 mg capsule,delayed release(DR/EC) 60 mg PO DAILY Rx Instructions: TAKE 1 CAPSULE BY MOUTH ONCE DAILY cholecalciferol (vitamin D3) 250 mcg (10,000 unit) capsule 250 mcg PO DAILY Discontinued hydrocodone-acetaminophen 10-325 mg tablet 10 - 325 tab PO Q6H PRN (Reason: Pain) 30 Days Qty: 90 0RF No Action hydrocodone-acetaminophen 10-325 mg tablet 10 - 325 tab PO Q6H PRN (Reason: Pain) 30 Days Qty: 90 0RF Discharge Orders: Discharge Order (Routine); Ordered 04/04/25 Ordered By: Roni Gordon Discharge Diet: Advance as tolerated Discharge Activity: Limit activity as instructed Patient Instructions: Acute Wound Care (DC), Post Anesthesia Care Activity Restrictions/Additional Instructions: Thank you for [facility] for your care! The following is a list of instructions, from your provider, to follow upon your discharge to ensure you have the optimal recovery from your recent injury orsurgery. Follow-up care is a duran part of your treatment and safety. Be sure to make and go to all appointments, and call your doctor if you are having problems. If you do not already have a follow-up appointment made, call Dr. Gordon office in the next 1-3 days to make follow up appointment for 2 weeks at [phone]. It is also a good idea to know your test results and keep a list of the medicines you take. Medications will be prescribed for you at your provider's discretion. These medications are to be used as instructed; if they are taken more often that prescribed they will not be refilled early and in most cases will not be refilled at all. > When a refill is needed,you should contact [facility] day 2-3 business days before your prescription runs out. Medications will NOT be refilled by senior web applications developer providers after hours! > Many pain medications contain Tylenol (Acetaminophen). Do not consume more than 4,000 mg of Tylenol per day in total with any combination ofmedications. > Pain medications can cause constipation. Please use an over the counter stool softener as directed, while taking pain medications. Consulty our local pharmacist with questions or recommendations on stool softeners. If constipation persists, contact our office or your primary care provider. > While under our care,you are not to receive pain medications or other controlled substances from any other provider unless our office is notified and approves. Any attempts to do so will result in refusal to prescribe any further pain medications and possible dismissal from our practice. ? Your wound and/or dressing should remain clean and dry for 2 days after surgery. On postoperative day 2 (48 hours after your surgery) the dressing (if present) should be removed and it is okay to shower and get the incision wet. Pad dry afterwards. No further dressing should be required from that point on. Do not put any creams or ointments on theincision > It is normal for there to be a small amount of discharge (bloody or blood tinged) present from a surgical wound for the first 1-3days. > The wound should be examined twice a day for signs of infection. Mild redness or bruising is to be expected but indications that an infection maybe starting would include; An increase in redness, swelling, or discharge, a foul odor present around the incision, and/or a fever greater than 101 ?F ? Showering is permitted, however we ask that you do not take a bath, sit in a whirlpool / Jacuzzi, or go swimming for 1 month. For only the first 2 days after surgery, lt wilt be necessary for you to cover your wound/dressing with plastic and tape to keep it dry. ? Walking is essential for the healing process after surgery. We would like you to slowly advance your walking. This should be done on relatively flat clear ground (inside or out) or can be done on a treadmill. Remember this goal does not have to happen all at once, slowly increase your distance and duration. This can be broken into more more than one walk per day as tolerated. Patients who walk as directed after surgery rarely require Physical Therapy. In the unlikely event this issue arises your provider will direct hospital staff to make the appropriate arrangements. ? No lifting over 5 pounds {a gallon of milk) or bending/twisting until further notice. Each of these activities places an unnecessary amount of stress onto the body and can impede the delicate healing process. > Instead of bending at the waist, keep your back straight and bend at the knees. > Instead of twisting your torso, keep your back straight and turn your entire body with your feet. ? You may sleep in any position which makes you comfortable. Many patients find comfort sleeping in a reclining chair. It is not abnormal to have difficulty sleeping for the first several weeks following your surgery. We recommend trying Benadry! or Tylenol PM as directed to help with your sleeping difficulties. Both medications are over the counter and available withoutprescription. ? NO SMOKING!!! Smoking dramatically increases the probability of developing postoperative wound infections. ? Common complaints after lumbar and/or thoracic spine surgery include, but are not limited to: numbness and/or tingling in the legs, pain around the incision and surrounding tissues, muscle spasms, or stiffness of the middle to low back. Contact our office if these symptoms persist or if an acute change occurs. ? No driving for the first 3-5days, and not while taking narcotics until seen at your follow-up appointment and cleared. There are no restrictions for riding on short trips, however if you take a longer trip, arrangements should be made to make regular stops to get out of the vehicle and stretch . ? Swelling is an unfortunate event that will take place with any surgery and is the primary source of your postoperative discomfort. While walking and regular approved activities helps control inflammation, there are additional steps you can take to minimizeswelling. > Place ice over the surgical site and surrounding tissue for twenty minutes, followed by applying a low/medium heat (heating pad) for an additional twenty minutes every 1-2 hours as needed for painrelief. > You may use of over the counter anti-inflammatory medications (Ibuprofen, Motrin, Aleve, Advil, etc) as directed on the package label. These types of medicines wm significantly reduce the amount of discomfort you experience after surgery from swelling. It should be noted that if you have and allergy to any of these medications, or a history of ulcers or kidney disease you should consult you primary care provider prior to starting these medications. Discharge Attestations Time Spent in Discharge Care*: less than 30 min Quality Metrics Clinical Quality Measures [ No reported AMI, CVA or VTE this stay] Coding Level of Care Code Acute Code for Chg Fwd
== END 2025-04-04 12:35 | disposition home or self-care (01) | DRG 451 ==
LOC: OR 11:20 → MEDSURG 15:18
PROVIDERS: Admitting Provider Orthopaedic Surgery; PCP Family Medicine; Visit Provider Orthopaedic Surgery
PROC: 0SG00K1 Fusion of Lumbar Vertebral Joint with Nonautologous Tissue Substitute, Posterior Approach, Posterior Column, Open Approach (ICD-10-PCS; principal; 2025-04-04 09:20)
DX: T84.216A Breakdown (mechanical) of internal fixation device of vertebrae, initial encounter (principal); Y79.8 Miscellaneous orthopedic devices associated with adverse incidents, not elsewhere classified; I10 Essential (primary) hypertension; E03.9 Hypothyroidism, unspecified; K21.9 Gastro-esophageal reflux disease without esophagitis; G89.29 Other chronic pain; Z79.890 Hormone replacement therapy; Z79.891 Long term (current) use of opiate analgesic; Z88.2 Allergy status to sulfonamides
CPT/HCPCS: 72020; 76000; 93005; C1713; J0131; J0690; J1100; J1200; J2405; J2704; J3010; J3370; J3490; J7030; J9999

== ENCOUNTER → 2025-04-21 10:14 | Outpatient (BNVA) | payer OTHER, MEDICAID, SELFPAY | PROVIDERS: PCP Family Medicine; Visit Provider Orthopaedic Surgery | DX: Z98.890 Other specified postprocedural states (principal); Z48.89 Encounter for other specified surgical aftercare | CPT/HCPCS: 99024 ==

== ENCOUNTER → 2025-05-17 10:26 | Outpatient (BNVA) | payer OTHER, MEDICAID, SELFPAY | PROVIDERS: PCP Family Medicine; Visit Provider Orthopaedic Surgery | DX: Z98.890 Other specified postprocedural states (principal); Z98.1 Arthrodesis status | CPT/HCPCS: 72100; 99024 ==

== ENCOUNTER → 2025-05-31 10:35 | Outpatient (BNVA) | payer OTHER, MEDICAID, SELFPAY | PROVIDERS: PCP Family Medicine; Visit Provider Orthopaedic Surgery | DX: Z98.890 Other specified postprocedural states (principal); G89.29 Other chronic pain; Z98.1 Arthrodesis status | CPT/HCPCS: 72100; 99024 ==

== ENCOUNTER → 2025-07-12 10:27 | Outpatient (BNVA) | payer OTHER, SELFPAY | PROVIDERS: PCP Family Medicine; Visit Provider Orthopaedic Surgery | DX: Z98.1 Arthrodesis status (principal) | CPT/HCPCS: 72100; 99024; 99213 ==